=== PATIENT | male | born 1990 ===

== ENCOUNTER 2024-08-20 19:41 | Emergency (ER) | payer SELFPAY ==
[2024-08-20 19:53] VITALS: BP 124/98
--- NOTE | 2024-08-20 20:10 | ED.GENMED ---
ED Provider Triage
-
Patient seen by provider in Triage?: Seen in Triage
A medical screening examination has been initiated by a qualified medical provider. Based on the assessment performed at this time, it has been determined that an emergent medical condition may exist and the patient has been informed that further
medical evaluation and possible additional diagnostic testing may be needed.
HPI: This is a medical evaluation conducted in person to initiate diagnostic evaluation and provide initial therapeutics. Please see further documentation by the treating clinician.
GENERAL: Alert , in no apparent distress
ENT: No visible abnormalities
LUNGS: No acute respiratory distress
NEUROLOGICAL: Alert and oriented x 3, cn intact, 5/5 strength, sensation intact, extinction normal,
SKIN: Skin intact. No visible changes.
MUSCULOSKELETAL: Moving extremities normally
PSYCH: Normal and appropriate interaction.
34 y/o M
AMS noticed by
mild at 6 pm when she got home fro a work trip wheere she was away for 2 days
pt semeed 'off' to her but nothing specific until he was making her dinner, cooking a steak on the stove and then she asked when it would be ready and he said 10 more minutes. when she came back into the kitchen the steak was gone. she asked him
what he did with it and he was confused and not sure and they looked around the kitchen until they found it in the fridge cut up and put away
this was very unusual
pt has no last known well time
he says he cooked all day, drank a pot of coffee because he is doin 'august'
he denies daily alcohol use or drug use
no SI/hi/hallucinations
pt says he knows he is not himeself
NIH 0 OR MAYBE 1 - very rarely speech seems a little garbled
does not meet stroke alert criteria
will w/u with labs, ct
suspect metabolic cause or TGA. pt is stressed about new baby that is coming in january
History of Present Illness
General
Chief Complaint: Change in Mental Status
History of Present Illness
History of Present Illness:
eloped after triage
Phy Exam
Physical Exam
Physical Exam:
eloped after triage
Course
Orders/Labs/Results
Orders:
Orders
08/20/24 20:03
Urine Drug Abuse Screen Urgent
08/20/24 20:04
CT Head W/o Iv Contrast Urgent
Comment:
Reason For Exam: ams, acting strange
08/20/24 20:09
Electrocardiogram (*1) Urgent
Reason for Study: TIA/Stroke
EKG- Treatment ONCE
08/20/24 20:15
Alcohol Urgent
CPK [Creatine Phosphokinase] Urgent
Complete Blood Count/With Diff Urgent
Comprehensive Metabolic Panel Urgent
Troponin I Urgent
Abnormal Lab Results
08/20/24
20:15
MCH 31.4 H pg
(27.0-31.0)
MPV 10.6 H fL
(7.4-10.4)
Absolute Lymphs (auto) 4.0 H 10^3/uL
(1.2-3.4)
Creatine Kinase 232 H U/L
(55-170)
Albumin 5.3 H g/dl
(3.5-5.0)
08/20/24 20:15
08/20/24 20:15
Vital Signs
Initial and Last Documented VS:
Initial Vital Signs
Temp Pulse Resp BP Pulse Ox
36.6 C 89 16 124/98 98
08/20/24 19:53 08/20/24 19:53 08/20/24 19:53 08/20/24 19:53 08/20/24 19:53
Last Documented Vital Signs
Temp Pulse Resp BP Pulse Ox
36.6 C 72 18 122/80 100
08/20/24 19:53 08/20/24 22:27 08/20/24 22:27 08/20/24 22:27 08/20/24 22:27
*Critical Care Note
Total Time (30-74mins, 75-104mins- exclusive of procedures): Not Applicable
ED Attending Note
-
Portions of this chart may have been created with voice recognition software.� Occasional wrong word or��sound alike� substitutions may have occurred due to the inherent limitations of voice recognition software.
Discharge Plan
Departure
Patient Disposition: Elopement
Interventions
Interventions:
*Risk Screen - Suicide Last Done: 08/20/24 19:53
*General Assessment Last Done: 08/20/24 19:53
*ED COVID-19 Vaccine History Last Done: 08/20/24 19:53
*Nursing Disposition Last Done: 08/20/24 22:26
Discharge Date and Time
Print Language: PORTUGUESE
[2024-08-20 20:35] LABS: % Basophils 0.5 % (0-2); % Eosinophils 3.8 % (0-6); % Immature Granulocytes 0.3 % (0-0.5); % Lymphocytes 39.8 % (20.5-51.1); % Neutrophils 50.6 % (42.2-75.2); Absolute Basophils 0.1 10^3/uL (0-0.2); Absolute Eosinophils 0.4 10^3/uL (0-0.7); Absolute Monocytes 0.5 10^3/uL (0.1-0.6); Absolute Neutrophils 5.1 10^3/uL (1.4-6.5); Hematocrit 46.7 % (39.0-52.0); Hemoglobin 16.4 g/dL (13.0-18.0); Mean Corp Hgb Conc. 35.1 g/dL (33.0-37.0); Mean Corpuscular Hgb 31.4 pg (27.0-31.0); Mean Corpuscular Volume 89.3 fL (80.0-94.0); Mean Platelet Volume 10.6 fL (7.4-10.4); Nucleated Red Blood Cells % 0 % (-); Platelet Count 223 10^3/uL (130-400); Red Blood Cell Count 5.23 10^6/uL (4.70-6.10); Red Cell Dist. Width 12.1 % (11.5-14.5); White Blood Cell Count 10.1 10^3/uL (4.8-10.8)
[2024-08-20 20:53] LABS: ALT (SGPT) 33 U/L (0-50); AST (SGOT) 36 U/L (17-59); Albumin 5.3 g/dl (3.5-5.0); Alcohol 232 mg/dl; Alkaline Phosphatase 48 U/L (38-126); Blood Urea Nitrogen 13 mg/dl (9-20); Calcium 9.6 mg/dl (8.4-10.2); Carbon Dioxide 24 mmol/L (22-30); Chloride 103 mmol/L (98-107); Creatine Phosphokinase 232 U/L (55-170); Glucose 93 mg/dl (70-99); Potassium 4.3 mmol/L (3.5-5.1); Sodium 143 mmol/L (135-145); Total Bilirubin 0.4 mg/dl (0.2-1.3); Total Protein 8.2 g/dl (6.3-8.2); eGFR > 60.00
[2024-08-20 20:57] LABS: Troponin I < 0.012 ng/ml
[2024-08-20 22:27] VITALS: BP 122/80
== END 2024-08-20 22:26 | disposition left against medical advice (07) ==
LOC: EMR 19:41
PROVIDERS: EMERGENCY PHYSICIAN Physician Assistant
DX: R41.82 Altered mental status, unspecified (principal); Z53.29 Procedure and treatment not carried out because of patient's decision for other reasons
CPT/HCPCS: 70450; 80053; 82077; 82550; 84484; 85025; 93005

== ENCOUNTER 2024-10-26 05:25 | Inpatient (IN) | payer OTHER, SELFPAY ==
[2024-10-26] VITALS (28 sets, daily range): BP systolic 99–155; BP diastolic 59–98; BMI 34.3; BMI 33.4
[2024-10-26 03:07] LABS: % Basophils 0.4 % (0-2); % Eosinophils 3.1 % (0-6); % Immature Granulocytes 0.4 % (0-0.5); % Monocytes 6.4 % (1.7-9.3); % Neutrophils 61.7 % (42.2-75.2); Absolute Basophils 0.1 10^3/uL (0-0.2); Absolute Eosinophils 0.4 10^3/uL (0-0.7); Absolute Immature Granulocytes 0.1 10^3/uL (0-0.05); Absolute Lymphocytes 3.9 10^3/uL (1.2-3.4); Absolute Monocytes 0.9 10^3/uL (0.1-0.6); Absolute Neutrophils 8.5 10^3/uL (1.4-6.5); Hematocrit 42.3 % (39.0-52.0); Hemoglobin 14.7 g/dL (13.0-18.0); Mean Corp Hgb Conc. 34.8 g/dL (33.0-37.0); Mean Corpuscular Hgb 30.9 pg (27.0-31.0); Mean Corpuscular Volume 89.1 fL (80.0-94.0); Mean Platelet Volume 10.5 fL (7.4-10.4); Nucleated Red Blood Cells % 0 % (-); Platelet Count 192 10^3/uL (130-400); Red Blood Cell Count 4.75 10^6/uL (4.70-6.10); Red Cell Dist. Width 12.8 % (11.5-14.5); White Blood Cell Count 13.8 10^3/uL (4.8-10.8)
[2024-10-26 03:15] LABS: INR 1.05
[2024-10-26 03:16] LABS: APTT 27.3 Sec (23.4-35.0)
[2024-10-26 03:18] LABS: ALT (SGPT) 66 U/L (0-50); AST (SGOT) 33 U/L (17-59); Albumin 4.3 g/dl (3.5-5.0); Alkaline Phosphatase 52 U/L (38-126); Blood Urea Nitrogen 29 mg/dl (9-20); Calcium 9.5 mg/dl (8.4-10.2); Carbon Dioxide 26 mmol/L (22-30); Chloride 103 mmol/L (98-107); Estimated Creatinine Clearance > 125 ml/min; Glucose 124 mg/dl (70-99); Potassium 4.3 mmol/L (3.5-5.1); Sodium 137 mmol/L (135-145); Total Bilirubin 0.7 mg/dl (0.2-1.3); eGFR > 60.00
--- NOTE | 2024-10-26 04:22 | ED.GENMED ---
History of Present Illness
General
Chief Complaint: Vomiting Blood
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
Exam Limitations: none
Time Seen by Provider: 10/26/24 03:29
Nursing documentation reviewed up to this point in time: agreed with
History of Present Illness
History of Present Illness:
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 Several minutes later he had an additional episode of hematemesis.
No history of similar episodes in the past, he denies chest pain or abdominal pain. He does have history of acid reflux and takes Tums on a daily basis. He denies NSAID use, takes no medications on a daily basis.
He admits to moderate alcohol consumption but denies daily alcohol use.
Phy Exam
Physical Exam
Physical Exam:
GENERAL: 34-year-old male appears his stated age, awake and alert, appears mildly apprehensive but otherwise easily communicative, cooperative and in no acute distress.
EYE: . anicteric
NECK: Supple, nontender, no meningismus, no significant adenopathy.
ENT: oral mucosa is moist. No rhinorrhea.
CARDIAC: Regular rate and rhythm. no murmur.
LUNGS: Clear breath sounds bilaterally, no acute respiratory distress, no wheezes/rales/rhonchi
ABDOMEN: Soft, nondistended, without focal tenderness, no r/g, no cvat. normoactive BS. Rectal exam reveals scant brown stool within the vault that is heme-negative.
NEUROLOGICAL: Alert and oriented x3, no focal neuro deficits.
SKIN: Warm and dry, normal color, skin intact. No rash.
MUSCULOSKELETAL: No C/C/E. peripheral pulses are full and equal b/l. No palpable tenderness.
PSYCH: Normal and appropriate interaction.
Course
Orders/Labs/Results
Orders:
Orders
10/26/24 02:46
ECG [Electrocardiogram (*1)] Urgent
Reason for Study: Chest Pain
10/26/24 02:47
EKG- Treatment ONCE
10/26/24 02:55
Type+Screen Urgent
Complete Blood Count/With Diff Urgent
Comprehensive Metabolic Panel Urgent
PTT Urgent
Prothrombin Time Urgent
10/26/24 03:05
ABO2 Urgent
BBK Wristband Number:
Associate notified that ABO2 has been ordered: [id number]
Date: 10/26/24
Time: 03:04
Software Engineering Analyst ID: [id number]
10/26/24 03:38
0.9% Sodium Chloride 1000 ml [Nss] 1,000 ml IV BOLUS
Pantoprazole [Protonix IV] 80 mg IV NOW STA
CR Chest - 2 Views Urgent
Comment:
Reason For Exam: ACUTE HEMATEMESIS
Abnormal Lab Results
10/26/24
02:55
WBC 13.8 H 10^3/uL
(4.8-10.8)
MPV 10.5 H fL
(7.4-10.4)
Abs Immat Gran (auto) 0.1 H 10^3/uL
(0-0.05)
Absolute Neuts (auto) 8.5 H 10^3/uL
(1.4-6.5)
Absolute Lymphs (auto) 3.9 H 10^3/uL
(1.2-3.4)
Absolute Monos (auto) 0.9 H 10^3/uL
(0.1-0.6)
BUN 29 H mg/dl
(9-20)
Glucose 124 H mg/dl
(70-99)
ALT 66 H U/L
(0-50)
10/26/24 02:55
10/26/24 02:55
Vital Signs
Initial and Last Documented VS:
Initial Vital Signs
BP Pulse Ox
155/98 100
10/26/24 02:42 10/26/24 02:42
Last Documented Vital Signs
Temp Pulse Resp BP Pulse Ox
98.1 F 86 21 138/96 99
10/26/24 02:59 10/26/24 03:45 10/26/24 03:45 10/26/24 03:00 10/26/24 04:00
MDM/Problems Addressed
Differential Diagnosis Includes:
History concerning for acute upper GI bleed, concern for hemorrhagic gastritis, bleeding ulcer, esophageal varices.
Remains hemodynamically stable and no hematemesis since arrival to the ED.
IV fluids established, IV Protonix bolus has been given. If hematemesis recurs, to consider octreotide.
Will admit to hospitalist service.
*Radiology
Radiology exam reviewed: preliminary read by ED provider (Chest x-ray is unremarkable. Clear lung ambrose.)
*Pulse Oximetry
Patient hypoxic: no
*EKG
Interpreted by ED Provider?: Yes
Interpretation: normal
Comparison EKG: no changes (Unchanged from previous August 20, 2024)
Rate: normal
Rhythm: sinus
[place]: normal axis
Interval: normal interval
QRS Pattern: normal QRS
Ischemia: no ischemia
*[employer] Supervisor Interpretation
Rate: normal
Interpretation: normal
Rhythm: sinus
*Critical Care Note
Total Time (30-74mins, 75-104mins- exclusive of procedures): Not Applicable
ED Attending Note
-
Portions of this chart may have been created with voice recognition software.� Occasional wrong word or��sound alike� substitutions may have occurred due to the inherent limitations of voice recognition software.
Discharge Plan
Departure
Patient Disposition: Admit
Date of Disposition: 10/26/24
Time of Disposition: 04:29
Admit to: Telemetry
Admit to doctor: Esteban
Presentation/result/management discussed w/ accepting MD/DO: Hospitalist
Condition: Fair
Discharge Problem:
Acute upper gastrointestinal bleeding
Prescriptions:
No Action
No Current Medications
0
Referrals:
UNKNOWN - PT DOES,NOT KNOW [Family Provider] -
Interventions
Interventions:
*Risk Screen - Suicide Last Done: 10/26/24 02:59
*General Assessment Last Done: 10/26/24 02:59
*Neglect/Abuse Screening Last Done: 10/26/24 02:59
*ED- Fall Risk Assessment Last Done: 10/26/24 02:59
*ED COVID-19 Vaccine History Last Done: 10/26/24 02:59
PW-Weoful-Xwolvsnssc Assessment Last Done: 10/26/24 02:59
ED- Cardiac Assessment Last Done: 10/26/24 02:59
ED- Pulmonary Assessment Last Done: 10/26/24 02:59
Discharge Date and Time
Print Language: SINHALA
[2024-10-26] MEDS: NSS 1000 IV (04:38)
[2024-10-26] MEDS: PROTONIX IV 80 MG IV (04:39)
--- NOTE | 2024-10-26 05:09 | HPS.HSE ---
Family Physician
-
Family Physician: NOT KNOW UNKNOWN - PT DOES
Chief Complaint
-
Hematemesis
History of Present Illness
Patient is a 34y M with no significant PMH who presents to ED complaining of throwing up blood this evening. Patient states that he felt somewhat poorly this evening with mild headache and some nausea. Around 12:20 AM he had nausea with an
episode of emesis that consisted entirely of bright red blood. Patient states that he had a second episode shortly thereafter. He estimate the total volume of blood as > 1 cup. He denies any chest pain, abdominal pain, back pain. No diaphoresis,
dyspnea, etc. He denies any prior history of similar symptoms.
In the ED, patient continues to complain of some nausea and notes some epigastric discomfort - especially when sitting upright / leaning forward.
He has had no additional N/V/hematemesis here.
Patient denies any recent OTC medications including NSAIDs. He takes no daily Rx medications.
He states that he drinks socially and denies daily EtOH use.
Medical History
Past Medical History
Past Medical History: Reports None
Past Surgical History: Reports Other
Additional Past Surgical History:
Left Elbow Surgery
Social History
Tobacco: Non-smoker
Alcohol: Occasional
Drug: None
Personal:
Living: With Family
Family History
Family History: Not pertinent
Allergies / Home Medications
Allergies reflects when Allergies were last updated in [facility].
Home Medications with original date entered in [facility]
Allergy/Medication List:
Allergies
Allergy/AdvReac Type Severity Reaction Status Date / Time
Sulfa (Sulfonamide Allergy Unknown Verified 10/26/24 02:43
Antibiotics)
Home Medications
No Meds [No Current Medications] 10/26/24
Review of Systems
-
History Source: Patient
A 12 point ROS was completed and negative except as noted: Yes
Constitutional: Denies Fever or Chills
EENT: Denies Sore Throat
Respiratory: Denies Cough or Trouble Breathing
Cardiac: Denies Chest Pain or Palpitations
Abdomen/GI: Reports Nausea and Vomiting (hematemesis); Denies Abdominal Pain, Bloody Stools or Black Stools
: Denies Dysuria or Frequency
Musculoskeletal: Denies Joint Pain or Edema
Neurological: Reports Headache; Denies Dizzy
Psych: Denies Depression or Anxiety
Physical Exam
Vital Signs
Vital Signs
Temp Pulse Resp BP Pulse Ox
98.1 F 86 21 128/88 99
10/26/24 02:59 10/26/24 03:45 10/26/24 03:45 10/26/24 04:41 10/26/24 04:41
Physical Exam
General: Other (34y M in no acute distress.)
HEENT: Moist mucous membranes and PERRLA
Respiratory: Clear; No Wheezes, Rales or Rhonchi
Cardiac: S1/S2 and Regular Rhythm; No Murmur
GI: Soft, Non Tender, Non Distended and Normal Bowel Sounds
Musculoskeletal: No Clubbing, No Cyanosis and No Edema
Neuro: AO x 3
Laboratory Results
-
10/26/24 02:55
10/26/24 02:55
Laboratory Results
PT 14.0 Sec (11.4-14.6) 10/26/24 02:55
INR 1.05 10/26/24 02:55
APTT 27.3 Sec (23.4-35.0) 10/26/24 02:55
Total Bilirubin 0.7 mg/dl (0.2-1.3) 10/26/24 02:55
AST 33 U/L (17-59) 10/26/24 02:55
ALT 66 U/L (0-50) H 10/26/24 02:55
Alkaline Phosphatase 52 U/L (38-126) 10/26/24 02:55
Impression/Plan
-
A/P: Patient is a 34y M with no significant PMH who presents to ED for evaluation after hematemesis at home this evening.
Hematemesis / UGIB
- Admit for further evaluation and treatment.
- Continue IV PPI infusion for now.
- Monitor for any additional episodes of hematemesis.
- GI consult for further recommendations / possible endoscopic examination.
- Follow serial H&H.
- More urgent GI evaluation if recurrent hematemesis / hemodynamic instability / etc.
DVT Prophylaxis: SCDs
Code Status: Full
[2024-10-26] MEDS: PROTONIX 100 IV ×2 (05:32→18:28)
[2024-10-26] MEDS: LR 1000 IV ×2 (05:32→15:14)
[2024-10-26 07:52] LABS: Hematocrit 37.6 % (39.0-52.0); Hemoglobin 13.2 g/dL (13.0-18.0)
--- NOTE | 2024-10-26 08:06 | W.PN.HOSP.TC ---
Today's Communication/Plan
-
See plan
Assessment / Plan
Assessment / Plan
Physical Exam
General: Not in acute distress
HEENT: Moist mucous membranes
Respiratory: Clear to Auscultation Bilaterally
Cardiac: S1/S2 and Regular Rate and Rhythm
GI: Soft, Non Tender, Non Distended and Normal Bowel Sounds
Musculoskeletal: No Cyanosis and No Edema
Neuro: AAO x 3
Assessment/Plan
Patient is a 34 y/o male with no significant past medical history who presented for evaluation after hematemesis at home on the day of presentation.
Hematemesis / UGIB
Red blood in the lower third of the esophagus on EGD 10/26/24
Esophageal ulcer with stigmata of prior treatment (Injected. Treated with bipolar cautery. Clips were placed) -- seen on EGD 10/26/24
8 cm hiatal hernia -- seen on EGD 10/26/24
Hematin (altered blood/ednzmt-cpzirv-bbws material) in the entire stomach status post fluid aspiration -- seen and done on EGD 10/26/24
Blood in the second portion of the duodenum -- seen on EGD 10/26/24
- EGD performed on 10/26/24, findings are above
- Continue NPO - if patient has no bleeding for 12 hours, can start clear liquid diet without reds and can then advance as tolerated.
- Continue IV Pantoprazole infusion (8 mg/hr IV by continuous infusion)
- Monitor for any additional episodes of hematemesis.
- GI consult for further recommendations / possible endoscopic examination.
- Follow serial H&H Q6H
- Repeat upper endoscopy in 8 weeks for surveillance -- sooner if patient has bleeding again
- Avoid NSAID's.
DVT Prophylaxis: SCDs. No chemical DVT prophylaxis given patient's bleeding.
Code Status: Full Code
Anticipated Discharge: 24 - 48 hours
Subjective/Interval History
-
Date of Service: October 26, 2024
Patient was seen and examined. He reported dark blood coffee colored vomiting overnight, 2 episodes.
Objective Data
-
Labs:
Laboratory Results
10/26/24 10/26/24 10/26/24
02:55 06:11 07:32
WBC 13.8 H
Hgb 14.7 Cancelled 13.2
Hct 42.3 Cancelled 37.6 L
Plt Count 192
PT 14.0
INR 1.05
APTT 27.3
Sodium 137
Potassium 4.3
Chloride 103
Carbon Dioxide 26
BUN 29 H
Creatinine 0.9
Glucose 124 H
Calcium 9.5
Total Bilirubin 0.7
AST 33
ALT 66 H
Alkaline Phosphatase 52
10/26/24 10/26/24 10/26/24
11:00 12:45 14:11
WBC
Hgb Cancelled Pending Cancelled
Hct Cancelled Pending Cancelled
Plt Count
PT
INR
APTT
Sodium
Potassium
Chloride
Carbon Dioxide
BUN
Creatinine
Glucose
Calcium
Total Bilirubin
AST
ALT
Alkaline Phosphatase
10/26/24 10/26/24 10/26/24
18:45 19:00 22:11
WBC
Hgb Pending Cancelled Cancelled
Hct Pending Cancelled Cancelled
Plt Count
PT
INR
APTT
Sodium
Potassium
Chloride
Carbon Dioxide
BUN
Creatinine
Glucose
Calcium
Total Bilirubin
AST
ALT
Alkaline Phosphatase
Vital Signs:
Vital Signs
Temp Pulse Resp BP Pulse Ox
98.1 F 77 15 114/73 99
10/26/24 02:59 10/26/24 07:57 10/26/24 07:57 10/26/24 07:57 10/26/24 07:45
I&O
10/25/24 10/26/24 10/27/24
06:59 06:59 06:59
Output Total 700 / 700
Balance -700 / -700
--- NOTE | 2024-10-26 08:20 | PTCARENOTE ---
Pt received as admit from ED. AAOx3. Independently ambulated from stretcher to bed. NSR on tele, HRs 80s. SpO2 98% on room air. Protonix gtt infusing through R hand PIV per order. Pt to remain NPO, denies nausea at this time. GI at bedside. Continue
q6h H&H, next due at 1245. Pt resting in bed, call arzola in reach. Per ER nurse pt had bowel movement this morning. Stool was heme negative. Per GI plan for EGD today.
--- NOTE | 2024-10-26 12:21 | CON.GI ---
Consultation
-
Date/Time Consultation Requested: 10/26/2024
Date/Time Consultation Performed: 10/26/2024
Requesting Provider: Dr. Orellana
Performing Provider: Dr. Hernandez
Reason for Consultation: Hematemesis
Medical History
Chief Complaint / HPI
Chief Complaint: Hematemesis
History of Present Illness:
32-year-old male, presenting with complaints of 2 episodes of hematemesis early this morning. He reports that he was on duty, he had [employer] for dinner around 4 PM, and is feeling well but around 11 PM, had some discomfort in the abdomen and
started feeling nauseous and had 2 episodes of vomiting without any retching and had bright blood or coffee-ground material and again this morning in the emergency room. Denies any previous episodes like this. He does report history of heartburn a
regular basis with regurgitation, this happens 4-5 times a week, takes Tums and this going on for many years. No trouble swallowing. Bowel pattern is 2-3 formed stool a day, no pushing or straining. Complete evacuation. No blood in the stool or
black stool. No regular NSAID use. No weight loss. Had brown stool this morning as well.
In the emergency room, he was noted to have white cell count of 13.8, hemoglobin 14.7, dropped to 13.2, platelets of 192, INR of 1.0, CMP shows BUN of 29, ALT of 66 and glucose of 124 but otherwise unremarkable.
He was in the hospital in early August for altered mental status, at that time his LFTs were normal. Blood alcohol level was elevated at 232.
Past Medical History
Past Medical History: None
Social History
Tobacco: Non-Smoker
Alcohol: Occasional
Family History
Family History: Reviewed & Not Pertinent
Allergies / Home Medications
Allergy/AdvReac Type Severity Reaction Status Date / Time
Sulfa (Sulfonamide Allergy Unknown Verified 10/26/24 02:43
Antibiotics)
�Medication �Instructions �Recorded
No Meds [No Current Medications] 10/26/24
Review of Systems
-
All other systems: A 12 pt ROS was Negative except as stated above in HPI
Vital Signs
Temp Pulse Resp BP Pulse Ox
97.4 F 102 16 125/78 97
10/26/24 10:52 10/26/24 11:07 10/26/24 11:07 10/26/24 11:07 10/26/24 11:07
Physical Exam
Exam
HEENT: Normocephalic
Respiratory: Clear
Cardiac: S1/S2 and Regular Rhythm
GI: Soft, Non Tender and Non Distended
Neuro: Awake and AO x 3
Results
WBC 13.8 10^3/uL (4.8-10.8) H 10/26/24 02:55
Hgb Cancelled 10/26/24 22:11
Hct Cancelled 10/26/24 22:11
MCV 89.1 fL (80.0-94.0) 10/26/24 02:55
Plt Count 192 10^3/uL (130-400) 10/26/24 02:55
Absolute Neuts (auto) 8.5 10^3/uL (1.4-6.5) H 10/26/24 02:55
PT 14.0 Sec (11.4-14.6) 10/26/24 02:55
INR 1.05 10/26/24 02:55
APTT 27.3 Sec (23.4-35.0) 10/26/24 02:55
Sodium 137 mmol/L (135-145) 10/26/24 02:55
Potassium 4.3 mmol/L (3.5-5.1) 10/26/24 02:55
Chloride 103 mmol/L (98-107) 10/26/24 02:55
Carbon Dioxide 26 mmol/L (22-30) 10/26/24 02:55
BUN 29 mg/dl (9-20) H 10/26/24 02:55
Creatinine 0.9 mg/dL (0.7-1.3) 10/26/24 02:55
Calcium 9.5 mg/dl (8.4-10.2) 10/26/24 02:55
Total Bilirubin 0.7 mg/dl (0.2-1.3) 10/26/24 02:55
AST 33 U/L (17-59) 10/26/24 02:55
ALT 66 U/L (0-50) H 10/26/24 02:55
Alkaline Phosphatase 52 U/L (38-126) 10/26/24 02:55
Diagnostic Image Results:
Prior GI Procedures:
EGD:
Colonoscopy:
Assessment / Plan
-
34-year-old male with no significant past medical history presenting with 2 episodes of hematemesis and 1 episode in the emergency room, no significant drop in hemoglobin noted. Hemodynamically stable.
Upper endoscopy shows ulcer at the GE junction with a visible vessel/clot that was cauterized and clipped.
-Upper GI bleeding likely related to ulcer at the GE junction now status post treatment
Continue Protonix IV drip
N.p.o., in 8 hours if no further vomiting, okay for clear liquid diet without any reds.
Monitor H&H every 8 hours for now.
If hemoglobin less than 7, will transfuse.
-Mild elevation in ALT, will get abdominal ultrasound.
-
-
Thank you for consultation and allowing me to participate in the patient's care. Please call the condenser tester GI physician during the after hours with any questions or concerns.
[2024-10-26 14:12] LABS: Hematocrit 37.8 % (39.0-52.0); Hemoglobin 13.3 g/dL (13.0-18.0)
--- NOTE | 2024-10-26 15:02 | PTCARENOTE ---
assumed pt care no change in pt assessment. pt states no pain ivf running as ordered no nausea.
[2024-10-26 18:38] LABS: Hematocrit 36.8 % (39.0-52.0)
--- NOTE | 2024-10-26 21:17 | PTCARENOTE ---
Received pt resting in bed, AAOx3. NSR on tele, HR 80-90s. BP stable. No edema, + pulses, afebrile. On RA, spo2 95. Lungs CTA. + bowel sounds. Remians NPO. Denies N/V. Reports 'normal' BM this morning. R AC INT with protonix gtt and LR @ 100ml/hr
infusing as ordered. Call arzola in reach
[2024-10-27 00:36] VITALS: BP 117/74
[2024-10-27 01:00] LABS: Hematocrit 34.1 % (39.0-52.0); Hemoglobin 12.2 g/dL (13.0-18.0)
[2024-10-27 02:00] VITALS: BP 123/67
[2024-10-27] MEDS: LR 1000 IV (02:57)
[2024-10-27] MEDS: PROTONIX 100 IV ×3 (05:17→23:18)
[2024-10-27 05:52] LABS: Hematocrit 33.4 % (39.0-52.0); Mean Corp Hgb Conc. 35.9 g/dL (33.0-37.0); Mean Corpuscular Hgb 31.3 pg (27.0-31.0); Mean Corpuscular Volume 87.2 fL (80.0-94.0); Mean Platelet Volume 10.5 fL (7.4-10.4); Platelet Count 191 10^3/uL (130-400); Red Blood Cell Count 3.83 10^6/uL (4.70-6.10); Red Cell Dist. Width 13.2 % (11.5-14.5); White Blood Cell Count 14.9 10^3/uL (4.8-10.8)
[2024-10-27 06:22] LABS: Blood Urea Nitrogen 24 mg/dl (9-20); Calcium 9.2 mg/dl (8.4-10.2); Carbon Dioxide 23 mmol/L (22-30); Chloride 106 mmol/L (98-107); Estimated Creatinine Clearance > 125 ml/min; Glucose 120 mg/dl (70-99); Potassium 4.3 mmol/L (3.5-5.1); Sodium 136 mmol/L (135-145); eGFR > 60.00
--- NOTE | 2024-10-27 08:37 | PTCARENOTE ---
pt aaox3. states no pain or nausea. reviewed plan of care for today. protonix and ivf gtt running as ordered.
--- NOTE | 2024-10-27 11:04 | W.PN.GI.CBS2 ---
Today's Communication / Plan
-
-Upper GI bleeding likely related to ulcer at the GE junction now status post treatment
Continue Protonix IV drip
Hemoglobin seems to be stable, BUN trending down
Okay for clear liquid diet. If no further bleeding, will advance to full liquid diet later today.
If no further bleeding, can go to a low residue diet tomorrow. (Patient's has obstetric ultrasound appointment at [place] tomorrow morning at 8:30 AM which patient was hoping to make it to. Discussed with patient that if he has drop in
hemoglobin, might have to monitor him but if not, we could discharge him early tomorrow morning if possible)
Monitor H&H every 8 hours for now.
If hemoglobin less than 7, will transfuse.
He will need follow-up endoscopy in 8 weeks. Will need to see us in the office in 6 weeks.
-Mild elevation in ALT, abdominal ultrasound showing fatty liver
Discussed alcohol abstinence and weight loss
Assessment / Plan
-
34-year-old male with no significant past medical history presenting with 2 episodes of hematemesis and 1 episode in the emergency room, no significant drop in hemoglobin noted. Hemodynamically stable.
Upper endoscopy shows ulcer at the GE junction with a visible vessel/clot that was cauterized and clipped.
-Upper GI bleeding likely related to ulcer at the GE junction now status post treatment
Continue Protonix IV drip
Hemoglobin seems to be stable, BUN trending down
Okay for clear liquid diet. If no further bleeding, will advance to full liquid diet later today.
If no further bleeding, can go to a low residue diet tomorrow. (Patient's has obstetric ultrasound appointment at [place] tomorrow morning at 8:30 AM which patient was hoping to make it to. Discussed with patient that if he has drop in
hemoglobin, might have to monitor him but if not, we could discharge him early tomorrow morning if possible)
Monitor H&H every 8 hours for now.
If hemoglobin less than 7, will transfuse.
He will need follow-up endoscopy in 8 weeks. Will need to see us in the office in 6 weeks.
-Mild elevation in ALT, abdominal ultrasound showing fatty liver
Discussed alcohol abstinence and weight loss
Subjective
Subjective
Date of Service: October 27, 2024
Patient without any complaints. No abdominal pain, nausea or vomiting. No diarrhea
Objective
Data Reviewed
Laboratory Data:
Laboratory Results
10/27/24 05:36
10/27/24 05:36
Laboratory Results
PT 14.0 Sec (11.4-14.6) 10/26/24 02:55
INR 1.05 10/26/24 02:55
APTT 27.3 Sec (23.4-35.0) 10/26/24 02:55
Total Bilirubin 0.7 mg/dl (0.2-1.3) 10/26/24 02:55
AST 33 U/L (17-59) 10/26/24 02:55
ALT 66 U/L (0-50) H 10/26/24 02:55
Alkaline Phosphatase 52 U/L (38-126) 10/26/24 02:55
Vital Signs and I&O:
Vital Signs
Temp Pulse Resp BP Pulse Ox
97.9 F 66 14 123/67 98
10/27/24 07:18 10/27/24 03:00 10/27/24 03:00 10/27/24 02:00 10/27/24 03:00
I&O
10/26/24 10/27/24 10/28/24
06:59 06:59 06:59
Intake Total 100 / 100
Output Total 700 / 700
Balance -700 / -700 100 / 100
Physical Exam
Physical Exam
GI: Soft, Non Distended and Non Tender
--- NOTE | 2024-10-27 11:56 | W.PN.HOSP.TC ---
Today's Communication/Plan
-
Advance to Full Liquids Diet today of tolerating clear liquids diet without any vomiting/bleeding
Plan to discharge tomorrow on Low Residue Diet if patient doing well
Assessment / Plan
Assessment / Plan
Physical Exam
General: Not in acute distress
HEENT: Moist mucous membranes
Respiratory: Clear to Auscultation Bilaterally
Cardiac: S1/S2 and Regular Rate and Rhythm
GI: Soft, Non Tender, Non Distended and Normal Bowel Sounds
Musculoskeletal: No Cyanosis and No Edema
Neuro: AAO x 3
Assessment/Plan
Patient is a 34 y/o male with no significant past medical history who presented for evaluation after hematemesis at home on the day of presentation.
Hematemesis / UGIB
Red blood in the lower third of the esophagus on EGD 10/26/24
Esophageal ulcer with stigmata of prior treatment (Injected. Treated with bipolar cautery. Clips were placed) -- seen on EGD 10/26/24
8 cm hiatal hernia -- seen on EGD 10/26/24
Hematin (altered blood/hzssif-nftiov-vylr material) in the entire stomach status post fluid aspiration -- seen and done on EGD 10/26/24
Blood in the second portion of the duodenum -- seen on EGD 10/26/24
- EGD performed on 10/26/24, findings are above
- Continue continue clear liquid diet without reds and if tolerated without any bleeding, can advance to Full Liquids Diet later today, and if that is tolerated, than can advance to Low Residue Diet tomorrow
- Continue IV Pantoprazole infusion (8 mg/hr IV by continuous infusion)
- Monitor for any additional episodes of hematemesis.
- GI consult for further recommendations / possible endoscopic examination.
- Follow serial H&H Q6H
- Repeat upper endoscopy in 8 weeks for surveillance -- sooner if patient has bleeding again
- Patient will need to see gastroenterology in the office in 6 weeks.
- Avoid NSAID's.
Mild elevation in ALT, abdominal ultrasound showing fatty liver
-Alcohol abstinence and weight loss, outpatient follow-up with PCP
DVT Prophylaxis: SCDs. No chemical DVT prophylaxis given patient's bleeding.
Code Status: Full Code
Anticipated Discharge: Within 24 hours
Subjective/Interval History
-
Date of Service: October 27, 2024
Patient was seen and examined. He denied any new symptoms. He denied having any further bloody vomiting.
Objective Data
-
Labs:
Laboratory Results
10/27/24 10/27/24
00:34 05:36
WBC 14.9 H
Hgb 12.2 L 12.0 L
Hct 34.1 L 33.4 L
Plt Count 191
Sodium 136
Potassium 4.3
Chloride 106
Carbon Dioxide 23
BUN 24 H
Creatinine 0.8
Glucose 120 H
Calcium 9.2
Vital Signs:
Vital Signs
Temp Pulse Resp BP Pulse Ox
97.9 F 66 14 123/67 98
10/27/24 11:26 10/27/24 03:00 10/27/24 03:00 10/27/24 02:00 10/27/24 03:00
I&O
10/26/24 10/27/24 10/28/24
06:59 06:59 06:59
Intake Total 100 / 100
Output Total 700 / 700
Balance -700 / -700 100 / 100
[2024-10-27] MEDS: LR IV (14:29)
[2024-10-27 15:33] VITALS: BP 109/63
[2024-10-27 18:05] VITALS: BP 119/74
--- NOTE | 2024-10-27 18:17 | PTCARENOTE ---
Received pt from ICU nurseDmitry around 1800. Report received prior. Pt was transported via wheelchair accompanied by nurse. Pt was able to transfer and walk himself from wheelchair to bed without difficulty. No pain reported at time of arrival.
Denies any GI symptoms. All needs met at this time. Plan of care ongoing.
[2024-10-27 23:00] VITALS: BP 119/58
[2024-10-28 07:15] VITALS: BP 120/56
--- NOTE | 2024-10-28 07:30 | W.PN.HOSP.TC ---
Today's Communication/Plan
-
Discharge today
Assessment / Plan
Assessment / Plan
Physical Exam
General: Not in acute distress
HEENT: Moist mucous membranes
Respiratory: Clear to Auscultation Bilaterally
Cardiac: S1/S2 and Regular Rate and Rhythm
GI: Soft, Non Tender, Non Distended and Normal Bowel Sounds
Musculoskeletal: No Cyanosis and No Edema
Neuro: AAO x 3
Assessment/Plan
Patient is a 34 y/o male with no significant past medical history who presented for evaluation after hematemesis at home on the day of presentation.
Hematemesis / UGIB
Red blood in the lower third of the esophagus on EGD 10/26/24
Esophageal ulcer with stigmata of prior treatment (Injected. Treated with bipolar cautery. Clips were placed) -- seen on EGD 10/26/24
8 cm hiatal hernia -- seen on EGD 10/26/24
Hematin (altered blood/kzyhsu-jpkemy-pzon material) in the entire stomach status post fluid aspiration -- seen and done on EGD 10/26/24
Blood in the second portion of the duodenum -- seen on EGD 10/26/24
- EGD performed on 10/26/24, findings are above
- Diet advanced to Low Residue
- Continue IV Pantoprazole infusion (8 mg/hr IV by continuous infusion) -- will switch to Protonix 40 mg Q12H on discharge
- Monitor for any additional episodes of hematemesis.
- GI consult for further recommendations / possible endoscopic examination.
- Hgb has been stable
- Repeat upper endoscopy in 8 weeks for surveillance -- sooner if patient has bleeding again
- Patient will need to see gastroenterology in the office in 6 weeks.
- Avoid NSAID's.
Mild elevation in ALT, abdominal ultrasound showing fatty liver
-Alcohol abstinence and weight loss, outpatient follow-up with PCP
DVT Prophylaxis: SCDs. No chemical DVT prophylaxis given patient's bleeding.
Code Status: Full Code
More than 30 minutes spent in discharge including
Final examination of the patient
Summarizing hospital stay
Instructions for continuing care to all relevant caregivers
Preparation of discharge records, prescriptions, and referral forms
Total time spent (in minutes): 34
Anticipated Discharge: Today
Subjective/Interval History
-
Date of Service: October 28, 2024
Patient was seen and examined. He denied any symptoms or complaints, he has been tolerating PO intake well, denied any vomiting or abdominal pain.
Objective Data
-
Labs:
Laboratory Results
10/28/24
06:00
WBC Pending
Hgb Pending
Hct Pending
Plt Count Pending
Vital Signs:
Vital Signs
Temp Pulse Resp BP Pulse Ox
97.9 F 68 16 120/56 98
10/28/24 07:15 10/28/24 07:15 10/28/24 07:15 10/28/24 07:15 10/28/24 07:15
I&O
10/27/24 10/28/24 10/29/24
06:59 06:59 06:59
Intake Total 100 / 100 480 / 480
Balance 100 / 100 480 / 480
[2024-10-28 08:34] LABS: Hematocrit 32.4 % (39.0-52.0); Hemoglobin 11.4 g/dL (13.0-18.0); Mean Corp Hgb Conc. 35.2 g/dL (33.0-37.0); Mean Corpuscular Hgb 31.4 pg (27.0-31.0); Mean Corpuscular Volume 89.3 fL (80.0-94.0); Mean Platelet Volume 10.7 fL (7.4-10.4); Platelet Count 189 10^3/uL (130-400); Red Blood Cell Count 3.63 10^6/uL (4.70-6.10); White Blood Cell Count 10.4 10^3/uL (4.8-10.8)
[2024-10-28] MEDS: PROTONIX 100 IV (08:54)
--- NOTE | 2024-10-28 10:25 | W.PN.GI.CBS2 ---
Today's Communication / Plan
-
s/p EGD with noted GE junction bleeding
for discharge today
cont PPI BID x 8 weeks then daily
NSAID avoidance
OP follow up 3-4 week and repeat EGD in 8 weeks-
OP follow up set up 11/21 11:30 AM in [place] office -- reviewed with patient and added to discharge
reviewed with patient to return for recurrent bleeding problems -- discussed precautions with return to work and signs of rebleeding
-Mild elevation in ALT, abdominal ultrasound showing fatty liver
Discussed alcohol abstinence and weight loss-- OP follow up to review
Assessment / Plan
-
34-year-old male with no significant past medical history presenting with 2 episodes of hematemesis and 1 episode in the emergency room, no significant drop in hemoglobin noted. Hemodynamically stable.
Upper endoscopy shows ulcer at the GE junction with a visible vessel/clot that was cauterized and clipped.
Laboratory Tests
10/26/24 10/27/24 10/27/24
18:28 00:34 05:36
Hgb 13.0 12.2 L 12.0 L
10/28/24
07:38
Hgb 11.4 L
-Upper GI bleeding likely related to ulcer at the GE junction now status post treatment
-anemia
PLAN:
s/p EGD with noted GE junction bleeding
for discharge today
cont PPI BID x 8 weeks then daily
NSAID avoidance
OP follow up 3-4 week and repeat EGD in 8 weeks-
OP follow up set up 11/21 11:30 AM in [place] office -- reviewed with patient and added to discharge
reviewed with patient to return for recurrent bleeding problems -- discussed precautions with return to work and signs of rebleeding
-Mild elevation in ALT, abdominal ultrasound showing fatty liver
Discussed alcohol abstinence and weight loss-- OP follow up to review
Subjective
Subjective
Date of Service: October 28, 2024
no stools recorded on low residue diet, feeling well asking about discharge
Objective
Data Reviewed
Laboratory Data:
Laboratory Results
10/28/24 07:38
10/27/24 05:36
Laboratory Results
PT 14.0 Sec (11.4-14.6) 10/26/24 02:55
INR 1.05 10/26/24 02:55
APTT 27.3 Sec (23.4-35.0) 10/26/24 02:55
Total Bilirubin 0.7 mg/dl (0.2-1.3) 10/26/24 02:55
AST 33 U/L (17-59) 10/26/24 02:55
ALT 66 U/L (0-50) H 10/26/24 02:55
Alkaline Phosphatase 52 U/L (38-126) 10/26/24 02:55
Vital Signs and I&O:
Vital Signs
Temp Pulse Resp BP Pulse Ox
97.9 F 68 16 120/56 98
10/28/24 07:15 10/28/24 07:15 10/28/24 07:15 10/28/24 07:15 10/28/24 10:09
I&O
10/27/24 10/28/24 10/29/24
06:59 06:59 06:59
Intake Total 100 / 100 480 / 480
Balance 100 / 100 480 / 480
Physical Exam
Physical Exam
HEENT: Anicteric and Moist mucous membranes
Cardiology: Normal Sinus Rhythm
Pulmonary: Clear
GI: Soft, Non Distended and Non Tender
Extremities: No Edema
Neuro: Non Focal
--- NOTE | 2024-10-28 14:00 | CM ---
Alert awake oriented pt who lives with Vasyl.Correct address given to admission to update in summary. They live in 2 story home with o steps to enter and 15 steps to bed bathroom.He is independent in all ADLs. Offered VN he declined. His
will drive him home.
No DME
NO VN /SNF hx.
Pharmacy [facility] [place].
PCP None pt given [facility] [phone] information.
PLAN Home no needs
[2024-10-28 14:10] VITALS: BP 134/89
== END 2024-10-28 14:50 | disposition home or self-care (01) | DRG 382 ==
LOC: 3 WEST ACU 05:25
PROVIDERS: ADMITTING PHYSICIAN Hospitalist; ATTENDING PHYSICIAN Hospitalist; CONSULT PHYSICIAN Internal Medicine Gastroenterology; EMERGENCY PHYSICIAN Emergency Medicine
PROC: 0W3P8ZZ Control Bleeding in Gastrointestinal Tract, Via Natural or Artificial Opening Endoscopic (ICD-10-PCS; 2024-10-26)
DX: K22.11 Ulcer of esophagus with bleeding (principal); K44.9 Diaphragmatic hernia without obstruction or gangrene; Z88.2 Allergy status to sulfonamides
CPT/HCPCS: 71046; 76700; 80048; 80053; 85014; 85018; 85025; 85027; 85610; 85730; 86850; 86900; 86901; 93005; 96361; 96374; 99285

== ENCOUNTER 2025-02-13 06:28 | Day surgery (SDC) | payer OTHER, SELFPAY | END 2025-02-13 13:24 | disposition home or self-care (01) | LOC: GI 06:28 | PROVIDERS: ATTENDING PHYSICIAN Internal Medicine Gastroenterology | DX: Q39.9 Congenital malformation of esophagus, unspecified (principal); K44.9 Diaphragmatic hernia without obstruction or gangrene; Z87.19 Personal history of other diseases of the digestive system | CPT/HCPCS: 43239; 88305; 88342 ==